=== PATIENT | female | born 1985 | race Caucasian/White ===

== ENCOUNTER 2016-12-07 15:04 | Emergency (ER) | payer MEDICAID ==
[~2016-12-07] VITALS: Ht 170.2 cm; Wt 127.3 kg
[2016-12-07 15:12] VITALS: BP 165/78; TEMP 98.2
[2016-12-07] MEDS ORDERED: PROZAC60 MG PO (15:14)
[2016-12-07] MEDS ORDERED: TAMBOCOR50 MG PO (15:15)
[2016-12-07] MEDS ORDERED: XANAX 1MG1 MG PO (15:15)
[2016-12-07] MEDS ORDERED: XARELTO20 MG PO (15:15)
[2016-12-07] MEDS ORDERED: TOPROL XL 50MG50 MG PO (15:15)
[2016-12-07] MEDS ORDERED: PRIL40 PO (15:16)
[2016-12-07] MEDS ORDERED: NORCO 325 MG-51 TAB PO (15:49)
[2016-12-07] MEDS ORDERED: PEN-VEE K500 MG PO (15:49)
[2016-12-07 16:04] VITALS: PULSE 76
== END 2016-12-07 16:04 | disposition home or self-care (01) ==
LOC: COL.ER 15:04
DX: K04.7 Periapical abscess without sinus (principal); K02.9 Dental caries, unspecified; Z86.718 Personal history of other venous thrombosis and embolism; Z86.711 Personal history of pulmonary embolism; I42.9 Cardiomyopathy, unspecified; F17.200 Nicotine dependence, unspecified, uncomplicated

== ENCOUNTER 2016-12-16 19:07 | Emergency (ER) | payer MEDICAID ==
[~2016-12-16] VITALS: Ht 170.2 cm; Wt 129.5 kg
[~2016-12-16 19:07] MED LIST: NORCO 325 MG-51 TAB PO; PEN-VEE K500 MG PO; PRIL40 PO; PROZAC60 MG PO; TAMBOCOR50 MG PO; TOPROL XL 50MG50 MG PO; XANAX 1MG1 MG PO; XARELTO20 MG PO
[2016-12-16 19:09] VITALS: BP 138/89; PULSE 83; TEMP 98.7
[2016-12-16] MEDS ORDERED: NORCO 325 MG-51 TAB PO (19:59)
[2016-12-16] MEDS ORDERED: CLEOCIN HCL300 MG PO (19:59)
== END 2016-12-16 20:08 | disposition home or self-care (01) ==
LOC: COL.ER 19:07
DX: K04.7 Periapical abscess without sinus (principal); K08.89 Other specified disorders of teeth and supporting structures; F17.210 Nicotine dependence, cigarettes, uncomplicated

== ENCOUNTER 2017-01-06 16:07 | Emergency (ER) | payer MEDICAID ==
[~2017-01-06] VITALS: Ht 170.2 cm; Wt 134.1 kg
[~2017-01-06 16:07] MED LIST changes: +CLEOCIN HCL300 MG PO
[2017-01-06 16:11] VITALS: BP 139/83; PULSE 78; TEMP 97.7
[2017-01-06] MEDS ORDERED: TOPROL XL 50MG50 MG PO (16:14)
[2017-01-06] MEDS ORDERED: NORCO 325 MG-51 TAB PO (17:37)
[2017-01-06] MEDS ORDERED: AMOXICILLIN 50500 MG PO (17:37)
== END 2017-01-06 17:43 | disposition home or self-care (01) ==
LOC: COL.ER 16:07
DX: S02.5XXA Fracture of tooth (traumatic), initial encounter for closed fracture (principal); I42.9 Cardiomyopathy, unspecified; F32.9 Major depressive disorder, single episode, unspecified; F41.9 Anxiety disorder, unspecified; Z79.01 Long term (current) use of anticoagulants; X58.XXXA Exposure to other specified factors, initial encounter

== ENCOUNTER 2017-01-09 19:09 | Emergency (ER) | payer MEDICAID ==
[~2017-01-09] VITALS: Ht 170.2 cm; Wt 127.7 kg
[~2017-01-09 19:09] MED LIST changes: +AMOXICILLIN 50500 MG PO
[2017-01-09 19:16] VITALS: BP 134/70; PULSE 85; TEMP 99.1
[2017-01-09] MEDS ORDERED: AMOXICILLIN 50500 MG PO (19:19)
== END 2017-01-09 21:02 | disposition home or self-care (01) ==
LOC: COL.ER 19:09
DX: R68.84 Jaw pain (principal); S02.5XXD Fracture of tooth (traumatic), subsequent encounter for fracture with routine healing; F32.9 Major depressive disorder, single episode, unspecified; F41.9 Anxiety disorder, unspecified; D68.9 Coagulation defect, unspecified

== ENCOUNTER 2017-01-31 12:07 | Emergency (ER) | payer MEDICAID ==
[~2017-01-31] VITALS: Ht 170.2 cm; Wt 127.7 kg
[2017-01-31 12:09] VITALS: TEMP 98.3
[2017-01-31] MEDS ORDERED: FLEXERIL 1010 MG/TAB PO (14:20)
[2017-01-31 14:28] VITALS: BP 132/90; PULSE 88
== END 2017-01-31 14:29 | disposition home or self-care (01) ==
LOC: COL.ER 12:07
DX: S33.5XXA Sprain of ligaments of lumbar spine, initial encounter (principal); Z79.01 Long term (current) use of anticoagulants; F17.210 Nicotine dependence, cigarettes, uncomplicated; W18.2XXA Fall in (into) shower or empty bathtub, initial encounter
CPT/HCPCS: J1885; J2360

== ENCOUNTER 2017-02-01 21:38 | Emergency (ER) | payer MEDICAID ==
[~2017-02-01] VITALS: Ht 170.2 cm; Wt 127.7 kg
[~2017-02-01 21:38] MED LIST changes: +FLEXERIL 1010 MG/TAB PO
[2017-02-01 21:41] VITALS: BP 158/92; TEMP 97.7
[2017-02-02 00:05] VITALS: PULSE 81
== END 2017-02-02 00:06 | disposition home or self-care (01) ==
LOC: COL.ER 21:38
DX: S30.0XXA Contusion of lower back and pelvis, initial encounter (principal); F17.210 Nicotine dependence, cigarettes, uncomplicated; Z90.49 Acquired absence of other specified parts of digestive tract; Z90.89 Acquired absence of other organs; Z98.890 Other specified postprocedural states; W18.2XXA Fall in (into) shower or empty bathtub, initial encounter

== ENCOUNTER 2017-03-18 23:25 | Emergency (ER) | payer MEDICAID ==
[~2017-03-18] VITALS: Ht 170.2 cm; Wt 133.2 kg
[2017-03-18 23:36] VITALS: TEMP 98.4
[2017-03-19 00:05] LABS: BASO # 0.1 (0.0-0.2); BASO % 0.3 % (0.0-2.0); EOS # 0.3 (0.0-0.7); EOS % 2.1 % (0-4.0); GRAN # 8.9 (1.4-6.5); GRAN % 61.5 % (42.2-75.2); HEMATOCRIT 38.1 % (37.0-47.0); HEMOGLOBIN 11.6 g/dl (12.5-16.0); LYMPH # 3.9 (1.2-3.4); LYMPH % 26.8 % (20.0-51.0); MEAN CELL VOLUME 79 fl (80.0-100.0); MEAN CORPUSCULAR HEMOGLOBIN 24 pg (27.0-31.0); MEAN CORPUSCULAR HGB CONC 30 g/dl (33.0-37.0); MEAN PLATELET VOLUME 8.4 fl (7.4-10.4); MONO # 1.2 (0.1-0.6); MONO % 8.1 % (1.7-9.3); PLATELET COUNT 379 K/mm3 (130-400); RED BLOOD COUNT 4.83 M/mm3 (4.10-5.30); WHITE BLOOD COUNT 14.5 K/mm3 (4.8-10.8)
[2017-03-19 00:30] LABS: ALBUMIN 3.7 gm/dL (3.5-5.0); BILIRUBIN,TOTAL 0.2 mg/dL (0.0-1.0); CALCIUM 8.8 mg/dL (8.4-10.2); CREATININE, serum 0.93 mg/dL (0.52-1.25); POTASSIUM 4.1 mmol/L (3.4-5.0); TOTAL PROTEIN 6.9 gm/dL (6.4-8.2)
[2017-03-19 00:56] LABS: COLLECTION METHOD CLEAN CATCH
[2017-03-19 01:04] LABS: MUCOUS Present /lpf; PH 8 (5-8); URINE APPEARANCE Clear; URINE BACTERIA Rare /hpf; URINE BILIRUBIN Negative (NEGATIVE); URINE BLOOD Negative (NEGATIVE); URINE COLOR Yellow; URINE GLUCOSE Negative (NEGATIVE); URINE KETONE Trace (NEGATIVE); URINE LEUKOCYTE ESTERASE Negative (NEGATIVE); URINE PROTEIN(semi-quant) 1+ (NEGATIVE); URINE UROBILINOGEN Negative (NEGATIVE); URINE WBC 0-2 /hpf
[2017-03-19] MEDS ORDERED: ATIVAN 0.50.5 MG/TAB PO (01:12)
[2017-03-19 01:26] VITALS: BP 135/81; PULSE 96
== END 2017-03-19 01:27 | disposition home or self-care (01) ==
LOC: COL.ER 23:25
PROVIDERS: Emergency Medicine
DX: F41.9 Anxiety disorder, unspecified (principal); F32.9 Major depressive disorder, single episode, unspecified; I42.9 Cardiomyopathy, unspecified; I10 Essential (primary) hypertension; I48.91 Unspecified atrial fibrillation; F17.210 Nicotine dependence, cigarettes, uncomplicated
CPT/HCPCS: J7030

== ENCOUNTER 2020-05-27 16:29 | Emergency (ER) | payer MEDICAID ==
[~2020-05-27] VITALS: Ht 170.2 cm; Wt 141.4 kg
[~2020-05-27 16:29] MED LIST changes: +ATIVAN 0.50.5 MG/TAB PO
[2020-05-27 16:34] VITALS: BP 133/85; TEMP 97.2
[2020-05-27] MEDS ORDERED: NORCO 325 MG-51 TAB PO (16:57)
[2020-05-27] MEDS ORDERED: AMOXICILLIN 8751 TAB PO (16:57)
[2020-05-27 17:12] VITALS: PULSE 94
== END 2020-05-27 17:22 | disposition home or self-care (01) ==
LOC: COL.ER 16:29
DX: K02.9 Dental caries, unspecified (principal); I48.91 Unspecified atrial fibrillation; Z79.01 Long term (current) use of anticoagulants; Z86.711 Personal history of pulmonary embolism; Z88.6 Allergy status to analgesic agent; Z88.1 Allergy status to other antibiotic agents

== ENCOUNTER 2020-06-22 14:56 | Emergency (ER) | payer MEDICAID ==
[~2020-06-22] VITALS: Ht 170.2 cm; Wt 141.4 kg
[~2020-06-22 14:56] MED LIST changes: +AMOXICILLIN 8751 TAB PO
[2020-06-22 15:02] VITALS: BP 146/90; PULSE 101
[2020-06-22 17:54] LABS: BASO # 0.1 (0.0-0.2); BASO % 0.4 % (0.0-2.0); EOS # 0.5 (0.0-0.7); EOS % 2.8 % (0-4.0); GRAN # 10.1 (1.4-6.5); GRAN % 62.4 % (42.2-75.2); LYMPH # 4.5 (1.2-3.4); MEAN CELL VOLUME 65 fl (80.0-100.0); MEAN CORPUSCULAR HGB CONC 26 g/dl (33.0-37.0); MEAN PLATELET VOLUME 7.9 fl (7.4-10.4); MONO # 0.9 (0.1-0.6); MONO % 5.8 % (1.7-9.3); PLATELET COUNT 475 K/mm3 (130-400); RED BLOOD COUNT 5.22 M/mm3 (4.10-5.30); REDCELL DISTRIBUTION WIDTH-CV 19.8 % (11.5-14.5)
[2020-06-22 18:01] LABS: INR 1.3 (0.8-3.0); PROTHROMBIN TIME 15.1 SECONDS (9.7-12.8)
[2020-06-22 18:04] LABS: HEMOGLOBIN 8.9 g/dl (12.5-16.0); MEAN CORPUSCULAR HEMOGLOBIN 17 pg (27.0-31.0)
[2020-06-22 18:06] LABS: ALBUMIN 4.1 gm/dL (3.5-5.0); BILIRUBIN,TOTAL 0.4 mg/dL (0.0-1.0); CALCIUM 9.1 mg/dL (8.4-10.2); CREATININE, serum 0.62 (0.52-1.25); TOTAL PROTEIN 7.5 gm/dL (6.4-8.2)
[2020-06-22 19:05] LABS: COLLECTION METHOD CATHETER
[2020-06-22 19:14] LABS: PH 5 (5-8); SQUAMOUS EPITHELIAL 0-2 /hpf; URINE APPEARANCE Clear; URINE BACTERIA None Seen /hpf; URINE BILIRUBIN Negative (NEGATIVE); URINE BLOOD Negative (NEGATIVE); URINE COLOR Yellow; URINE GLUCOSE Negative (NEGATIVE); URINE KETONE Negative (NEGATIVE); URINE LEUKOCYTE ESTERASE Negative (NEGATIVE); URINE NITRATE Negative (NEGATIVE); URINE PROTEIN(semi-quant) Negative (NEGATIVE); URINE RBC 0-2 /hpf; URINE UROBILINOGEN Negative (NEGATIVE)
== END 2020-06-22 21:04 | disposition home or self-care (01) ==
LOC: COL.ER 14:56
PROVIDERS: Physician Assistant
DX: D64.9 Anemia, unspecified (principal); R06.00 Dyspnea, unspecified; N93.9 Abnormal uterine and vaginal bleeding, unspecified; R10.2 Pelvic and perineal pain; E66.01 Morbid (severe) obesity due to excess calories; F17.210 Nicotine dependence, cigarettes, uncomplicated; Z86.718 Personal history of other venous thrombosis and embolism; Z79.01 Long term (current) use of anticoagulants; Z88.1 Allergy status to other antibiotic agents
CPT/HCPCS: Q9967

== ENCOUNTER 2020-09-21 11:44 | Emergency (ER) | payer MEDICAID ==
[~2020-09-21] VITALS: Ht 170.2 cm; Wt 141.4 kg
[2020-09-21 11:49] VITALS: BP 139/94; TEMP 97.2
[2020-09-21] MEDS ORDERED: CLEOCIN HCL300 MG PO (12:20)
[2020-09-21] MEDS ORDERED: NORCO 325 MG-51 TAB PO (12:20)
[2020-09-21 12:29] VITALS: PULSE 91
== END 2020-09-21 12:28 | disposition home or self-care (01) ==
LOC: COL.ER 11:44
DX: K04.7 Periapical abscess without sinus (principal); F17.210 Nicotine dependence, cigarettes, uncomplicated; Z88.1 Allergy status to other antibiotic agents; Z88.6 Allergy status to analgesic agent; Z79.01 Long term (current) use of anticoagulants

== ENCOUNTER 2021-06-27 11:28 | Emergency (ER) | payer MEDICAID ==
[~2021-06-27] VITALS: Ht 170.2 cm; Wt 140.5 kg
[2021-06-27 11:40] VITALS: TEMP 98.1
[2021-06-27 13:24] VITALS: BP 135/91; PULSE 98
== END 2021-06-27 13:52 | disposition home or self-care (01) ==
LOC: COL.ER 11:28
DX: U07.1 COVID-19 (principal); D68.51 Activated protein C resistance; F17.210 Nicotine dependence, cigarettes, uncomplicated; Z73.0 Burn-out

== ENCOUNTER 2021-06-28 09:28 | Emergency (ER) | payer MEDICAID ==
[~2021-06-28] VITALS: Ht 162.6 cm; Wt 138.2 kg
[2021-06-28 10:42] VITALS: BP 140/105; PULSE 101
== END 2021-06-28 10:43 | disposition home or self-care (01) ==
LOC: COL.ER 09:28
DX: M79.661 Pain in right lower leg (principal); U07.1 COVID-19; Z88.6 Allergy status to analgesic agent; Z73.0 Burn-out; Z86.718 Personal history of other venous thrombosis and embolism; Z79.01 Long term (current) use of anticoagulants

== ENCOUNTER 2022-08-18 08:32 | Emergency (ER) | payer MEDICAID ==
[~2022-08-18] VITALS: Ht 170.2 cm; Wt 123.6 kg
[2022-08-18 09:13] LABS: HEMATOCRIT 44.7 % (37.0-47.0); HEMOGLOBIN 14.6 g/dl (12.5-16.0); MEAN CELL VOLUME 80 fl (80.0-100.0); MEAN CORPUSCULAR HEMOGLOBIN 26 pg (27-31); MEAN CORPUSCULAR HGB CONC 33 g/dl (33.0-37.0); MEAN PLATELET VOLUME 8.6 fl (7.4-10.4); PLATELET COUNT 184 K/mm3 (130-400); RED BLOOD COUNT 5.59 M/mm3 (4.10-5.30); REDCELL DISTRIBUTION WIDTH-CV 15.6 % (11.5-14.5)
[2022-08-18 09:31] LABS: CALCIUM 8.8 mg/dL (8.4-10.2); CREATININE, serum 0.72 mg/dL (0.57-1.11)
[2022-08-18 09:39] LABS: ANISOCYTOSIS 1+; EOSINOPHIL 2 % (0-4); HYPOCHROMIA 1+; LYMPHOCYTE 48 % (20.0-51.0); METAMYELOCYTE 2 % (0-0); MICROCYTOSIS 1+; NEUTROPHILS 48 % (42.0-75.2)
[2022-08-18 09:40] LABS: PLATELET ESTIMATE NORMAL (NORMAL)
[2022-08-18] MEDS ORDERED: NORCO 325 MG-51 TAB PO (10:17)
[2022-08-18 10:44] VITALS: BP 122/98; PULSE 110; TEMP 98.8
[2022-08-19 08:18] LABS: PATHOLOGY DIFF REVIEW OK
== END 2022-08-18 10:46 | disposition home or self-care (01) ==
LOC: COL.ER 08:32
PROVIDERS: Emergency Medicine
DX: K04.7 Periapical abscess without sinus (principal); L03.211 Cellulitis of face; F17.210 Nicotine dependence, cigarettes, uncomplicated; Z88.5 Allergy status to narcotic agent; Z79.01 Long term (current) use of anticoagulants; Z28.310 Unvaccinated for COVID-19
CPT/HCPCS: J2060; J2270; Q9967

== ENCOUNTER 2022-08-28 19:16 | Emergency (ER) | payer MEDICAID ==
[~2022-08-28] VITALS: Ht 170.2 cm; Wt 127.3 kg
[2022-08-28 20:55] VITALS: BP 145/106; PULSE 89
== END 2022-08-28 21:03 | disposition home or self-care (01) ==
LOC: COL.ER 19:16
DX: K02.9 Dental caries, unspecified (principal); F41.0 Panic disorder [episodic paroxysmal anxiety]; D68.51 Activated protein C resistance; Z79.01 Long term (current) use of anticoagulants; Z28.310 Unvaccinated for COVID-19
CPT/HCPCS: J1790